=== PATIENT | female | born 1980 | race Native Hawaiian/Other Pacific Islander ===

== ENCOUNTER 2018-02-06 23:52 | Outpatient (CLI) | payer BC ==
[~2018-02-06 23:52] MED LIST: ADIPEX-P37.5 M1 OR; ESCI10TA OR; HYDR25TA60 PO; LEVO0.0218 PO; LEVO0.117 PO; LOESTRIN1 TAB OR; SINGULAIR10 MG
== END 2018-02-07 00:37 | disposition short-term general hospital (02) ==
LOC: AMB 23:52
DX: R10.84 Generalized abdominal pain (principal); R11.2 Nausea with vomiting, unspecified
CPT/HCPCS: A0425; A0427

== ENCOUNTER 2018-04-07 08:20 | Observation (INO) | payer BC ==
[~2018-04-07] VITALS: Ht 167.6 cm; Wt 117.3 kg
[2018-04-07 09:34] LABS: PLATELET COUNT 552 K/uL (152-353)
[2018-04-07 09:46] LABS: POTASSIUM 4.4 mmol/L (3.6-5.2)
[2018-04-07 11:11] VITALS: BP 132/97; TEMP 97.6; Ht 167.6 cm; Wt 117.3 kg
[2018-04-07] MEDS ORDERED: CARAFATE1 GM PO (11:39)
[2018-04-07] MEDS ORDERED: PROM25TA52 PO (11:41)
[2018-04-07] MEDS ORDERED: ONDA4TAB3 PO (11:42)
[2018-04-07 11:56] VITALS: BP 150/95; TEMP 98.4
[2018-04-07 16:38] VITALS: BP 148/86; TEMP 98.6
[2018-04-07 20:00] VITALS: BP 121/89; TEMP 98.7
[2018-04-07 23:50] VITALS: BP 134/72; TEMP 98.2
[2018-04-08 04:00] VITALS: BP 131/83; TEMP 98.3
--- NOTE | 2018-04-08 06:28 | NUR ---
04/08/18 0615 RESTED WELL DURING THE NIGHT NO N/V DURING THE NIGHT.EXPLAINED TO PATIENT NOT TO EAT OR DRINK ANYTHING SHE IS NPO FOR ABDOMINAL ULTRASOUND THIS AM PT VERBALIZED UNDERSTANDING.CC
[2018-04-08 08:00] VITALS: BP 127/63; TEMP 98.1
[2018-04-08 12:00] VITALS: BP 128/62; TEMP 98
[2018-04-08 12:39] LABS: PLATELET COUNT 457 K/uL (152-353)
[2018-04-08 13:25] LABS: POTASSIUM 3.6 mmol/L (3.6-5.2)
[2018-04-08 16:00] VITALS: BP 134/85; TEMP 98.1
== END 2018-04-08 19:50 | disposition home or self-care (01) ==
LOC: MED/SURG 08:20
PROVIDERS: ADMIT Nurse Practitioner Family
DX: R11.2 Nausea with vomiting, unspecified (principal); I10 Essential (primary) hypertension; D64.89 Other specified anemias; E03.8 Other specified hypothyroidism; N39.0 Urinary tract infection, site not specified; E86.0 Dehydration; D72.828 Other elevated white blood cell count; D47.3 Essential (hemorrhagic) thrombocythemia
CPT/HCPCS: 80053; 81000; 81025; 82150; 82728; 83540; 83550; 83735; 85027; 85651; 86039; 87040; 87088; 93005; 94760; 96365; 96366; 96367; 96375; 99220; G0378; G0379; J2060; J2543; J2550; J2920; J3475; J3490

== ENCOUNTER 2021-01-30 14:00 | Outpatient (CLI) | payer BC, OTHER ==
[~2021-01-30 14:00] MED LIST changes: +CARAFATE1 GM PO; +ONDA4TAB3 PO; +PROM25TA52 PO
== END 2021-01-30 16:00 | disposition home or self-care (01) ==
LOC: INF 14:00
PROVIDERS: ATTEND Internal Medicine
DX: Z23 Encounter for immunization (principal)
CPT/HCPCS: 96372

== ENCOUNTER 2021-02-23 14:06 | Outpatient (CLI) | payer BC, OTHER | END 2021-02-23 23:59 | disposition home or self-care (01) | LOC: INF 14:06 | PROVIDERS: ATTEND Internal Medicine | DX: Z23 Encounter for immunization (principal) | CPT/HCPCS: 96372 ==